=== PATIENT | female | born 1960 | race Caucasian/White ===

== ENCOUNTER 2016-11-24 17:59 | Observation (INO) ==
[2016-11-24] MEDS ORDERED: Ondansetron 4 MG/2 ML VIAL IVP PRN (21:26)
[2016-11-24] MEDS ORDERED: *HR* Morphine 2 MG/ML SYRINGE IVP PRN (21:26)
[2016-11-24] MEDS ORDERED: Acetaminophen 325 MG TABLET PO PRN (21:26)
[2016-11-24] MEDS ORDERED: Naloxone 0.4 MG/ML INJ IVP PRN (21:26)
--- NOTE | 2016-11-24 21:26 | Internal Med History&Physical ---
Date of Encounter: 11/24/16 Time of Encounter: 21:00 Assessment and Plan (1) Chest pain Current visit: Yes Status: Acute 1 patient's experiencing chest pain does have a history of CT in past with stent placement he is a smoker as well as obese history of hypertension diabetes as well as a family history of heart disease with mother dying from CT 48. 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 5 cardiac diet encouraged patient to stop smoking Qualifiers: Chest pain type: unspecified Qualified Code(s): R07.9 - Chest pain, unspecified (2) Hypertension Current visit: Yes Status: Acute 1 patient's blood pressure has been elevated we will administer oral medications as well as anxiety medicine goal is to maintain systolic 140 Qualifiers: Hypertension type: essential hypertension Qualified Code(s): I10 - Essential (primary) hypertension (3) Diabetes mellitus Current visit: Yes Status: Acute 1 patient is on metformin at home will hold for now place on Accu-Cheks before meals and at bedtime with sliding scale insulin for coverage goal is to maintain postprandial less than 180 Qualifiers: Diabetes mellitus type: type 2 Diabetes mellitus complication status: with neurologic complications Diabetes mellitus complication detail: with unspecified neuropathy Diabetes mellitus [facility] insulin use: with [facility] use Qualified Code(s): E11.40 - Type 2 diabetes mellitus with diabetic neuropathy, unspecified; Z79.4 - manager terminal (current) use of insulin (4) COPD (chronic obstructive pulmonary disease) Current visit: Yes Status: Acute 1 patient has history of COPD she does use oxygen at night. We will continue with oxygen maintain sats greater than 92% 2 continue with home bronchodilators 3 encouraged patient to stop smoking Qualifiers: COPD type: unspecified COPD Qualified Code(s): J44.9 - Chronic obstructive pulmonary disease, unspecified (5) DYLAN on CPAP Current visit: Yes Status: Acute 1 we will continue with CPAP at night (6) Tobacco abuse Current visit: Yes Status: Acute 1 patient presently smokes 2 packs a day encourage patient to stop smoking offer her nicotine patch which she declined at this time (7) DVT prophylaxis Current visit: Yes Status: Acute 1 [facility] Internal Medicine - H&P: HPI Chief complaint: CP Admitted From: Hospital to Hospital Transfer Plans for Post Hospital Care: Home History of present illness: Ms. Mckee is a 56 year old female with past medical history hypertension diabetes type [address] with stent placement x2 COPD,DYLAN hyperlipidemia. Present to the patient she did not schedule podiatry appointment this a.m. which began to experience right arm pain which she described as achiness. Her blood pressure was elevated 175/109. She was advised to go to the hospital however she went home and called her PCP again advised her to go to the hospital for evaluation. Patient then went to go to something eat at local restaurant after arriving to the restaurant she began to experience midsternal chest pain /10 she described as dull achiness, which radiated to her right arm she did become nauseated however she denies any diaphoresis or shortness of breath palpitations or vomiting. She went to the [facility] ER for evaluation. According to ER notes the patient's first cardiac troponin was negative EKG with no ST-T wave abnormality chest x-ray was negative. Lab work was unremarkable Blood pressure was elevated on presentation 215/96 the patient was given some Dilaudid IV and relieved her pain and blood pressure came down patient requested to be transferred to [facility] for further workup and evaluation. Presently the patient denies any chest pain or shortness of breath, however she does complain of a dull headache. She appears anxious and does express that she has been under a lot of stress due to her son is addicted to heroin concerned about his well-being. At present time her blood pressure is elevated she states she has not had any medications this evening and is anxious. I reviewed his case with Dr. Caldwell who agrees with plan Internal Medicine - H&P: Meds Albuterol Sulfate [Proair Hfa] 2 puff IH Q4H PRN 11/24/16 [History] Alprazolam [Xanax] 2 mg PO PRN 11/24/16 [History] Aspirin 325 mg PO DAILY 11/24/16 [History] Atorvastatin [Lipitor] 80 mg PO HS 11/24/16 [History] Clopidogrel [Plavix] 75 mg PO DAILY 11/24/16 [History] FLUoxetine HCl [PROzac] 20 mg PO DAILY 11/24/16 [History] Furosemide [Lasix] 40 mg PO DAILY 11/24/16 [History] Hydroxyzine HCl 12.5 - 50 mg PO Q6H PRN 11/24/16 [History] Insulin DETEMIR [Levemir] 0 unit SQ HS 11/24/16 [History] Lisinopril [Zestril] 40 mg PO DAILY 11/24/16 [History] Loratadine [Claritin] 10 mg PO DAILY 11/24/16 [History] Metformin HCl [Glucophage] 1,000 mg PO BID 11/24/16 [History] Metoprolol [Lopressor] 25 mg PO BID 11/24/16 [History] Nitroglycerin [Nitrostat] 0.4 mg SL Q5M PRN 11/24/16 [History] Omeprazole [PriLOSEC] 40 mg PO DAILY 11/24/16 [History] Pioglitazone [Actos] 30 mg PO DAILY 11/24/16 [History] Allergies Amoxicillin Adverse Reaction (Mild, Verified 11/24/16 21:22) Rash All Systems PM: A 10-system review of systems was performed and is negative for pertinent findings except as documented above in the HPI. - Constitutional Constitutional: no chills, no fever(s), no night sweats - Cardiovascular Cardiovascular ROS IM: chest pain - Respiratory Respiratory: cough, dyspnea - Gastrointestinal Gastrointestinal: no abdominal pain, no diarrhea, no hematemesis, no hematochezia, no melena, no nausea, no vomiting - Genitourinary Genitourinary: no change in urinary stream, no dysuria, no flank pain, no hematuria - Integumentary Integumentary IM: no rash, no unusual bruising - Neurological Neurological ROS: no confusion, no convulsions, no focal weakness, no numbness, no tingling, no tremor(s) - Constitutional Vitals: Temp Pulse Resp BP Pulse Ox 98.1 F 92 16 196/89 94 L 11/24/16 20:00 11/24/16 20:00 11/24/16 20:00 11/24/16 20:00 11/24/16 20:00 General appearance: Present: obese - Head Head exam: Present: atraumatic, normocephalic - Respiratory Respiratory exam: Present: wheezes. Absent: accessory muscle use, rales, rhonchi - Cardiovascular Cardiovascular exam: Present: RRR, +S1, +S2. Absent: diastolic murmur, gallop, rubs, systolic murmur - GI/Abdominal GI/Abdominal exam: Present: normal bowel sounds, soft, no peritoneal signs. Absent: distended, tenderness - Extremities Exam Extremities exam: Present: warm, radial pulses palpable and symetrical. Absent : calf tenderness, cyanotic, pedal edema - Neurological Exam Neurological exam: Present: CN II-XII intact, oriented X3, no focal deficits. Absent: pronater drift, facial droop, speech deficit Internal Med - H&P Results - Labs Labs: Lab work obtained from [facility] emergency department records drawn at 16:21 CBC WBC 10.6 hemoglobin 13.5 hematocrit 40.3 platelets 300 Chem-7 sodium 142, potassium 4.0, chloride 104 CO2 29, BUN 10, creatinine 0.87 , glucose 88 Troponin 0.033, reference range <0.045 negative - EKG Data EKG shows normal: sinus rhythm, ST-T waves - Diagnostic Studies Chest x-ray Additional comments: Per radiology read the cardiomediastinal silhouette is unremarkable. There is no focal consolidation. Pleural effusion or pneumothorax no evidence for acute cardiopulmonary process
[2016-11-24] MEDS ORDERED: *HR* Dextrose 50 % in Water (Syg) 50 ML SYRINGE IVP PRN (21:35)
[2016-11-24] MEDS ORDERED: Dextrose Gel 15 GM PO PRN ×2 (21:35)
[2016-11-24] MEDS ORDERED: D5% in Water 1,000 ML IV PRN (21:35)
[2016-11-24] MEDS ORDERED: Albuterol 2.5 MG/3 ML NEBULIZER IH PRN (21:43)
[2016-11-24] MEDS: Insulin LISPRO 300 UNITS/3 ML VIAL SQ SCH (22:14)
[2016-11-24] MEDS ORDERED: Nitroglycerin 0.4 MG TAB.SUBL SL PRN (22:38)
[2016-11-24] MEDS: *HR* HYDROcodone/Acet 5/325 mg TABLET PO PRN (23:02)
[2016-11-24] MEDS: ALPRAZolam 1 MG TABLET PO PRN (23:25)
[2016-11-25 03:56] LABS: Basophils % 0.3 %; Eosinophils # 0.1 K/mcL (0.0-0.6); Eosinophils % 1.3 %; Hematocrit 37.8 % (35.3-44.9); Hemoglobin 11.7 g/dL (11.5-15.4); Immature Granulocytes % 0.3 % (0-4); Lymphocytes # 2.9 K/mcL (0.6-4.6); Lymphocytes % 33.2 %; Mean Corpuscular Hemoglobin 28.1 pg (28.0-33.3); Mean Corpuscular Volume 90.6 fL (83.0-100.0); Mean Platelet Volume 9.7 fL (9.4-12.4); Monocytes # 0.3 K/mcL (0.0-1.3); Monocytes % 3.9 %; Neutrophils # 5.3 K/mcL (1.6-8.9); Platelet Count 243 K/mcL (140-400); Red Blood Count 4.17 M/mcL (3.82-4.97); Red Cell Distribution Width 16.2 % (11.5-14.5)
[2016-11-25 04:15] LABS: BUN/Creatinine Ratio 14 (6-26); Blood Urea Nitrogen 11 mg/dL (7-20); Calcium 9.1 mg/dL (8.6-10.8); Carbon Dioxide 27 mEq/L (19-29); Chloride 103 mEq/L (98-109); Chol/HDL Ratio 4.7 (0-4.9); Cholesterol 108 mg/dL (< 200); Glucose 112 mg/dL (70-99); HDL Cholesterol 23 mg/dL (40-59); LDL Cholesterol,Calculated 61 mg/dL (0-99); Magnesium 1.3 mg/dL (1.6-2.6); Osmolality,Calculated 288 (280-300); Potassium 3.9 mEq/L (3.5-4.5); Sodium 139 mEq/L (136-145); Triglycerides 118 mg/dL (< 150); eGFR For African Americans > 60 (> 60); eGFR For Non-African Americans > 60 (> 60)
[2016-11-25] MEDS: *HR* HYDROcodone/Acet 5/325 mg TABLET PO PRN ×2 (05:06→18:01)
[2016-11-25] MEDS ORDERED: Regadenoson 0.4 MG/5 ML SYRINGE IVP ONE (06:29)
[2016-11-25] MEDS: *HR* Enoxaparin 40 MG/0.4 ML SYRINGE SQ SCH (06:54)
--- NOTE | 2016-11-25 07:56 | Event Note ---
Date of Encounter: 11/25/16 Time of Encounter: 05:45 Hospitalist Attending Note: I examined this patient and my medical decision-making was reviewed with the VAMP SEAMER/PA/Advanced Practice Nurse/Resident Physician. I agree with the documented findings, disposition and treatment plan as described except to the extent set forth below. I have personally examined and evaluated the patient and discussed details with the BOTTLE TESTER. 56 Y/F with h/o CAD / CT s/p stent placement, current smoker, h/o DM, COPD, DYLAN presents with chest pain and pain in the right upper arm. O/E Bilateral wheeze present. EKG no acute changes. Troponins negative sofar. Stress test today. She reports new onset headache, going anterior to the posterior. No signs of meningism. Will obtain CT head w/o contrast.
[2016-11-25] MEDS ORDERED: Perflutren Lipid Microsphere 1.3 ML in 0.9 % Sodium Chloride 8.7 ML IVP ONE (09:36)
[2016-11-25] MEDS: Insulin LISPRO 300 UNITS/3 ML VIAL SQ SCH ×4 (10:29→20:48)
[2016-11-25] MEDS: Furosemide 40 MG TABLET PO SCH (10:33)
[2016-11-25] MEDS: Aspirin 325 MG TABLET PO SCH (10:33)
[2016-11-25] MEDS: FLUoxetine 20 MG CAPSULE PO SCH (10:33)
[2016-11-25] MEDS: Fluticasone Propionate Nasal 50 MCG/SPRAY BOTTLE NS SCH ×2 (10:34→20:48)
[2016-11-25] MEDS: Nicotine 21 MG PATCH.TD24 TD SCH (10:34)
--- NOTE | 2016-11-25 13:12 | ECHO - Doppler Report ---
Echo with Imaging Enhancement Agent Name: Ese Mckee Date of Study: 11/25/2016 Date: 1960 Ht: 62.0 in Medical Record#: [id number] Age: 56 Wt: 228.0 lb Gender: Female BSA: 2.02 Order #: [id number] Location: [facility] Room #: [id number] Reading Physician: Paolo Archer MD, [facility] Religious Education Teacher: Alva Martines RVT Ordering Physician: Darling Beltran CNP Primary Physician: Yao Klein MD Indications: Chest pain Impressions: Normal left ventricular size and systolic function, LVEF 60-65%. Moderate left ventricular diastolic dysfunction. Normal right ventricular size and function. Mildly dilated left atrium. No significant valvular dysfunction. Mild pulmonary hypertension. Estimated RVSP = 38 mmHg. Left Ventricular Wall Motion: Rest Echo Findings All wall segments showed normal motion. Findings: Study Quality * Suboptimal echo windows. Echo contrast was used. ECG Findings * Normal sinus rhythm. Left Ventricle * Normal left ventricular size and systolic function, LVEF 60-65%. * Normal LV wall thickness. * Moderate left ventricular diastolic dysfunction. Right Ventricle * Normal right ventricular size and function. Left Atrium * Mildly dilated left atrium. Right Atrium * Normal right atrial size. Aorta * Normally sized aortic root. Pericardium * There is no pericardial effusion present. IVC * The IVC is not dilated. Aortic Valve * Aortic valve not well visualized. * No aortic stenosis. * No aortic regurgitation. Mitral Valve * Normal mitral valve structure. * No mitral stenosis. * Trace mitral regurgitation. Tricuspid Valve * Tricuspid valve not well visualized. * No tricuspid stenosis. * Trace tricuspid regurgitation. * Mild pulmonary hypertension. Estimated RVSP = 38 mmHg. Pulmonic Valve * Pulmonic valve not well visualized. * No pulmonic stenosis. * Trace pulmonic regurgitation. History Hypertension Diabetes Hypercholesteremia History of Smoking Years 44 Packs 2 Family History of CAD History of CAD/PTCA Myocardial Infarction Contrast: Definity 1.3 ml in 8.7 ml of saline 2 ml. Measurements: BP: 147/ 77 2D Normal Values RVIDd: 3.20 cm IVSd: 1.00 cm 0.6 - 1.0 cm LVIDd: 4.40 cm 3.7 - 5.6 cm LVPWd: 1.00 cm 0.6 - 1.1 cm LVIDs: 2.80 cm 1.5 - 3.6 cm AO: 2.60 cm < 4.0 cm %FS: 36.40 cm >25 % LA volume: 68 Mitral Valve Peak E:1.73 m/sec Peak A:1.07 m/sec E/A Ratio:1.6 E/E' Lat Ratio:26.5 E/E' Med Ratio:39.4 Tricuspid Valve TV Regurg Peak Grad: 33.00mmHg TV Regurg Peak Madi: 2.90m/sec Updated by Paolo Archer MD, [facility] on 11/25/2016 1:04:36 PM electronically signed on 11/25/2016 1:05:44 PM with status of Final Wall Motion Chowdhury: 1=Normal, 2=Hypokinesis, 3=Akinesis, 4=Dyskinesis, 5=Aneurysmal, 6=Hyperkinetic, X=Not Visualized (Blank)=Missing
--- NOTE | 2016-11-25 14:34 | Internal Med Progress Note ---
Date of Encounter: 11/25/16 Time of Encounter: 13:00 - Assessment and plan (1) Chest pain Current Visit: Yes Status: Acute Assessment and plan: Patient has history of CAD S/P stent. Need to rule out ACS. 2 sets of troponin negative. Patient is pain-free now. Echo result unremarkable. EKG unremarkable. Will follow up stress test result. We will continue aspirin, Plavix, beta thania, atorvastatin, and HI inhibitor. Qualifiers: Chest pain type: unspecified Qualified Code(s): R07.9 - Chest pain, unspecified (2) COPD (chronic obstructive pulmonary disease) Current Visit: Yes Status: Acute Assessment and plan: Stable, in no acute distress. Has scattered wheezing, will give her 1 DuoNeb treatment and nebulizer when necessary. Qualifiers: COPD type: unspecified COPD Qualified Code(s): J44.9 - Chronic obstructive pulmonary disease, unspecified (3) Diabetes mellitus Current Visit: Yes Status: Acute Assessment and plan: Patient was on Levemir 42 units at bedtime at home. We will give her 30 units at a time Levemir and sliding scale coverage Qualifiers: Diabetes mellitus type: type 2 Diabetes mellitus complication status: with neurologic complications Diabetes mellitus complication detail: with unspecified neuropathy Diabetes mellitus alf insulin use: with alf use Qualified Code(s): E11.40 - Type 2 diabetes mellitus with diabetic neuropathy, unspecified; Z79.4 - intermediate teacher (current) use of insulin (4) Hypertension Current Visit: Yes Status: Acute Assessment and plan: BP is poorly controlled, will adjust BP medication and follow-up with blood pressure Qualifiers: Hypertension type: essential hypertension Qualified Code(s): I10 - Essential (primary) hypertension (5) DYLAN on CPAP Current Visit: Yes Status: Acute Assessment and plan: Continue CPAP at night (6) Tobacco abuse Current Visit: Yes Status: Acute Assessment and plan: Smoking cessation education. Patient is on nicotine patch (7) DVT prophylaxis Current Visit: Yes Status: Acute Assessment and plan: Lovenox subcutaneous - Subjective Interval history: Patient is a 56-year-old female admitted for chest pain. Her past medical history is significant for hypertension, diabetes, CAD S/P stents, tobacco abuse , DYLAN on CPAP. Patient was seen and examined. She is pain-free today, no shortness of breath. Complaining of mild right arm ache, most likely muscle pain. 2 sets of troponin negative. Patient had a stress test this morning, will finish the stress test tomorrow morning. Echo done, result unremarkable. Patient complaining of headache, had a head CT which shows negative. Her BP is not well controlled, will continue manager global hypertension and closely monitoring patient. - Constitutional Vitals: Temp Pulse Resp BP Pulse Ox 97.5 F L 61 16 183/104 93 L 11/25/16 12:05 11/25/16 12:05 11/25/16 12:05 11/25/16 12:05 11/25/16 12:05 General appearance: Present: A&O X 3, no acute distress, obese, answers questions appropriately - Head Head exam: Present: atraumatic, normocephalic - Eye Eye exam: Present: PERRL, conjuntiva pink, sclera anicteric Pupils: Present: PERRL - Neck Neck exam general surgery: Present: supple, trachea midline. Absent: lymphadenopathy - Respiratory Respiratory exam: Present: CTAB, wheezes (Scattered wheezes on the right side). Absent: accessory muscle use, rales, rhonchi - Cardiovascular Cardiovascular exam: Present: RRR, +S1, +S2. Absent: diastolic murmur, gallop, rubs, systolic murmur - GI/Abdominal GI/Abdominal exam: Present: normal bowel sounds, soft, no peritoneal signs. Absent: distended, tenderness - Extremities Exam Extremities exam: Present: warm, radial pulses palpable and symetrical. Absent : calf tenderness, cyanotic, pedal edema - Neurological Exam Neurological exam: Present: CN II-XII intact, oriented X3, no focal deficits. Absent: pronater drift, facial droop, speech deficit - Skin Skin exam: Present: dry, intact Internal Medicine: Result - Labs CBC & Chem 7: 11/25/16 03:26 11/25/16 03:26 Labs: Short CBC 11/25/16 Range/Units 03:26 WBC 8.7 (4.3-11.1) K/mcL Hgb 11.7 (11.5-15.4) g/dL Hct 37.8 (35.3-44.9) % Plt Count 243 (140-400) K/mcL Neutrophils # 5.3 (1.6-8.9) K/mcL BMP 11/25/16 03:26 Sodium 139 Potassium 3.9 Chloride 103 Carbon Dioxide 27 BUN 11 Creatinine 0.77 Glucose 112 H Calcium 9.1 Cardiac Enzymes 11/24/16 11/25/16 Range/Units 22:01 03:26 Troponin I 0.01 0.03 (0-0.03) ng/mL - Impressions Impressions Head CT 11/25/16 07:55 IMPRESSION: No acute intracranial abnormality. D/ / Alissa Da Silva MD / Alissa Da Silva MD Interpreting Provider: Alissa Da Silva MD Consult Discharge Plan - Plan Referrals: Yao Klein MD [Primary Care Provider] -
[2016-11-25] MEDS ORDERED: GuaiFENesin Liq 200 MG/10 ML UDC PO PRN (14:36)
[2016-11-25] MEDS ORDERED: Ipratropium/Albuterol Neb 3 ML IH ONE (14:36)
[2016-11-25] MEDS ORDERED: NON-FORMULARY MEDICATION 1 EACH EACH (Lisinopril [Zestril] 40 MG) PO SCH (14:45)
[2016-11-25] MEDS: ALPRAZolam 1 MG TABLET PO PRN (20:43)
[2016-11-25] MEDS ORDERED: Insulin DETEMIR 100 UNIT/ML X5UNITS SQ SCH (21:00)
[2016-11-26 04:13] LABS: Basophils % 0.3 %; Eosinophils # 0.1 K/mcL (0.0-0.6); Eosinophils % 1.5 %; Hematocrit 40.4 % (35.3-44.9); Hemoglobin 12.6 g/dL (11.5-15.4); Immature Granulocytes % 0.3 % (0-4); Lymphocytes # 2.4 K/mcL (0.6-4.6); Lymphocytes % 31.8 %; Mean Corpuscular HGB Conc 31.2 g/dL (31.6-35.5); Mean Corpuscular Hemoglobin 27.8 pg (28.0-33.3); Mean Platelet Volume 9.7 fL (9.4-12.4); Monocytes # 0.4 K/mcL (0.0-1.3); Monocytes % 4.7 %; Neutrophils # 4.6 K/mcL (1.6-8.9); Platelet Count 258 K/mcL (140-400); Red Blood Count 4.54 M/mcL (3.82-4.97); Segmented Neutrophils % 61.4 %
[2016-11-26 04:34] LABS: BUN/Creatinine Ratio 22 (6-26); Blood Urea Nitrogen 16 mg/dL (7-20); Calcium 9.4 mg/dL (8.6-10.8); Carbon Dioxide 30 mEq/L (19-29); Chloride 103 mEq/L (98-109); Glucose 121 mg/dL (70-99); Osmolality,Calculated 296 (280-300); Potassium 3.7 mEq/L (3.5-4.5); Sodium 142 mEq/L (136-145); eGFR For African Americans > 60 (> 60); eGFR For Non-African Americans > 60 (> 60)
[2016-11-26] MEDS: *HR* Enoxaparin 40 MG/0.4 ML SYRINGE SQ SCH (05:59)
[2016-11-26] MEDS: Insulin LISPRO 300 UNITS/3 ML VIAL SQ SCH (08:16)
[2016-11-26] MEDS: Furosemide 40 MG TABLET PO SCH (08:18)
[2016-11-26] MEDS: FLUoxetine 20 MG CAPSULE PO SCH (08:18)
[2016-11-26] MEDS: Fluticasone Propionate Nasal 50 MCG/SPRAY BOTTLE NS SCH (08:19)
[2016-11-26] MEDS: Nicotine 21 MG PATCH.TD24 TD SCH (08:19)
[2016-11-26] MEDS: Aspirin 325 MG TABLET PO SCH (08:19)
[2016-11-26] MEDS ORDERED: amLODIPine 5 MG TABLET PO SCH (09:00)
[2016-11-26] MEDS ORDERED: Lisinopril 20 MG TABLET PO SCH (09:00)
--- NOTE | 2016-11-26 10:01 | Nuclear Medicine Stress Report ---
Regadenoson Nuclear 2 day Name: Ese Mckee Date of Study: 11/25/2016 Date: 1960 Ht: 61.0 in Medical Record#: [id number] Age: 56 Wt: 228.0 lb Gender: Female Order #: [id number] Location: [facility] Room: [facility] Supervising Provider: Gary Grijalva CNP Reading Physician: Dequan Ramirez DO, PEDRO HEADLEY FASNC Ordering Physician: Brooke Bello CNP Primary Care Physician: Yao Klein MD Stress Technologist: Geovanni Fernandez CRT Centrifugal Wax Molder: Tommy Watkins Indications: Chest Pain Impression: Pharmacologic stress ECG is negative for ischemia at level of heart rate achieved. Gated EF = 68%. Small sized, mild intensity, partially reversible anterior perfusion defect suspicious for shifting breast attenuation artifact. SDS 1. Perfusion imaging was negative for definitive ischemia or prior infarct. History: Hypertension Diabetes Hypercholesteremia History of Smoking Prior PCI Stress Test Summary: Stress Test Type: Pharmacologic Regadenoson 0.4mg/5ml given IV Baseline Information: Initial Heart Rate: 67 Blood Pressure: 138/72 Stress Information: Test Terminated Due to (primary): As per protocol Maximum Blood Pressure: 170/80 Maximum Heart Rate: 120 Percent Maximum Heart Rate Achieved: 73 Double Product: 84994 METS Reached: 1 Symptoms: Vomiting, No chest symptoms Nuclear Summary: SPECT myocardial perfusion imaging using Tc99m Sestamibi given intravenously was performed at rest and following cardiac stress testing. The resting images were obtained following initial dose of 34.2 mCi. Following stress an additional dose of 35.1 mCi was given at peak exercise or 30 seconds post regadenoson infusion. Medication Given: Time Medication Dose Units Route Findings: Stress Note * Resting ECG demonstrated normal sinus rhythm. * No baseline arrhythmias were noted. * Pharmacologic stress ECG is negative for ischemia at level of heart rate achieved. * No arrhythmias were noted during stress. * Patient had no chest pain during stress. * Normal hemodynamic responses to pharmacologic stress. Study Quality * Study quality is average. Gated EF % * Gated EF = 68%. Left Ventricle * The left ventricle is dilated. LVEDV = 98 mL. * Normal wall motion. Anterior Perfusion Rest * Mild basal anterior reduction in perfusion. Anterior Perfusion Stress * The anterior segments show a mild reduction in perfusion. TID * No evidence of transient ischemic dilatation. TID ratio = 1.26. Lung Uptake * There is no evidence of increase lung uptake. Updated by Dequan Ramirez DO, KYAODE, PEDRO, ALY on 11/26/2016 9:53:53 AM electronically signed on 11/26/2016 9:55:57 AM with status of Final
--- NOTE | 2016-11-26 10:20 | Discharge Summary ---
Date of Encounter: 11/26/16 Time of Encounter: 09:00 - Discharge Diagnosis (1) Chest pain Priority: Primary Status: Acute Qualifiers: Chest pain type: unspecified Qualified Code(s): R07.9 - Chest pain, unspecified (2) COPD (chronic obstructive pulmonary disease) Priority: Secondary Status: Acute Qualifiers: COPD type: unspecified COPD Qualified Code(s): J44.9 - Chronic obstructive pulmonary disease, unspecified (3) Diabetes mellitus Priority: Secondary Status: Acute Qualifiers: Diabetes mellitus type: type 2 Diabetes mellitus complication status: with neurologic complications Diabetes mellitus complication detail: with unspecified neuropathy Diabetes mellitus acid strength inspector insulin use: with acid strength inspector use Qualified Code(s): E11.40 - Type 2 diabetes mellitus with diabetic neuropathy, unspecified; Z79.4 - physical education aide (current) use of insulin (4) Hypertension Priority: Secondary Status: Acute Qualifiers: Hypertension type: essential hypertension Qualified Code(s): I10 - Essential (primary) hypertension (5) DYLAN on CPAP Priority: Secondary Status: Acute (6) Tobacco abuse Priority: Secondary Status: Acute (7) DVT prophylaxis Priority: Secondary Status: Acute - Discharge Medications Prescriptions: GuaiFENesin Liq [Robitussin Liq] 200 mg PO Q6HR PRN 7 Days PRN Reason: Cough Amlodipine [Norvasc] 5 mg PO DAILY #30 tablet Nicotine Patch [Nicoderm] 21 mg TD DAILY #14 patch.td24 Home Medications: Albuterol Sulfate [Proair Hfa] 2 puff IH Q4H PRN 11/24/16 [History] Alprazolam [Xanax] 2 mg PO DAILY PRN 11/24/16 [History] Aspirin 325 mg PO DAILY 11/24/16 [History] Atorvastatin [Lipitor] 80 mg PO HS 11/24/16 [History] Clopidogrel [Plavix] 75 mg PO DAILY 11/24/16 [History] FLUoxetine HCl [Prozac] 20 mg PO QAM 11/24/16 [History] Furosemide [Lasix] 40 mg PO DAILY 11/24/16 [History] Hydroxyzine HCl 12.5 - 50 mg PO Q6H PRN 11/24/16 [History] Insulin DETEMIR [Levemir] 42 unit SQ HS 11/24/16 [History] Lisinopril [Zestril] 40 mg PO DAILY 11/24/16 [History] Loratadine [Claritin] 10 mg PO DAILY 11/24/16 [History] Metformin HCl [Glucophage] 1,000 mg PO BID 11/24/16 [History] Metoprolol [Lopressor] 25 mg PO BID 11/24/16 [History] Nitroglycerin [Nitrostat] 0.4 mg SL Q5M PRN 11/24/16 [History] Omeprazole [PriLOSEC] 40 mg PO DAILY 11/24/16 [History] Pioglitazone [Actos] 30 mg PO DAILY 11/24/16 [History] Amlodipine [Norvasc] 5 mg PO DAILY #30 tablet 11/26/16 [Rx] GuaiFENesin Liq [Robitussin Liq] 200 mg PO Q6HR PRN 7 Days 11/26/16 [Rx] Nicotine Patch [Nicoderm] 21 mg TD DAILY #14 patch.td24 11/26/16 [Rx] Allergies/Adverse Reactions: Allergies Amoxicillin Adverse Reaction (Mild, Verified 11/24/16 21:22) Rash Procedures/tests Complete & Pending: Procedures Performed prior 72 hours Category Date Time Status CT head/brain wo con [CT] Stat Cat Scan 11/25/16 07:55 Completed NM keily perf SPECT multi [NM] Routine Exams 11/25/16 08:00 Taken ECG 12 lead ECG [ECG] AM 0600 Y 11/25/16 06:00 Ordered EV echocardiogram w enhance Routine Y 11/25/16 21:45 Completed SP pharm nuclear stress Routine Y 11/25/16 07:30 Completed Date of admission: 11/24/16 19:37 Primary care physician: Yao Klein MD Discharging clinician: Jose Alberto Mares Anticipated date of discharge: 11/26/16 - Patient Status Disposition: Home, Self-Care Condition: Good Functional capacity at discharge: independent ambulation Overall status at discharge: patient is back to baseline - Discharge Instructions Follow Up With: Yao Klein MD [Primary Care Provider] - 11/30/16 9:00 am - Diet and Activity Activity: increase activity as tolerated Diet: diabetic diet Interval History: Ms. Mckee is a 56 year old female with past medical history hypertension diabetes type 2 with neuropathy MS with stent placement x2 COPD,DYLAN hyperlipidemia. Present to the patient she did not schedule podiatry appointment this a.m. which began to experience right arm pain which she described as achiness. Her blood pressure was elevated 175/109. She was advised to go to the hospital however she went home and called her PCP again advised her to go to the hospital for evaluation. Patient then went to go to something eat at local restaurant after arriving to the restaurant she began to experience midsternal chest pain /10 she described as dull achiness, which radiated to her right arm she did become nauseated however she denies any diaphoresis or shortness of breath palpitations or vomiting. She went to the [facility] ER for evaluation. According to ER notes the patient's first cardiac troponin was negative EKG with no ST-T wave abnormality chest x-ray was negative. Lab work was unremarkable Blood pressure was elevated on presentation 215/96 the patient was given some Dilaudid IV and relieved her pain and blood pressure came down patient requested to be transferred to [facility] for further workup and evaluation. Presently the patient denies any chest pain or shortness of breath, however she does complain of a dull headache. She appears anxious and does express that she has been under a lot of stress due to her son is addicted to heroin concerned about his well-being. At present time her blood pressure is elevated she states she has not had any medications this evening and is anxious. Hospital course: Ms. Mckee is a 56 year old female admitted as a chest pain to rule out ACS. Patient was placed on cardiac monitoring. She has history of CAD and was on 8 aspirin, Plavix, beta thania, statin already. She has no further chest pain after hospitalization. 3 sets of troponin negative. EKG unremarkable. CXR from other hospital on 11/23/16 was negative. Nuclear stress test was done, results negative. Patient will discharge home today and follow up with her PCP as outpatient. I saw and examined the patient today. She is awake, alert, oriented 3. Mild cough. No chest pain, no shortness of breath, no nausea, no vomiting. No fever , vital signs stable except blood pressure is high at 150s. Will add amlodipine 5 mg to her home medication list. Patient is stable to discharge home. Smoking cessation education was done. Time spent discussing smoking cessation with patient: 3 to 10 minutes - Time Spent with Patient Total time spent providing and/or coordinating discharge services: 40 minutes Greater than 30 minutes - Constitutional Vitals: Temp Pulse Resp BP Pulse Ox 97.4 F L 84 20 156/50 98 11/26/16 08:05 11/26/16 08:05 11/26/16 08:05 11/26/16 08:05 11/26/16 08:24 General appearance: Present: A&O X 3, no acute distress, obese, answers questions appropriately - Head Head exam: Present: atraumatic, normocephalic - Eye Eye exam: Present: PERRL, conjuntiva pink, sclera anicteric Pupils: Present: PERRL - Neck Neck exam general surgery: Present: supple, trachea midline. Absent: lymphadenopathy - Respiratory Respiratory exam: Present: CTAB, wheezes (Few wheezes on right side). Absent: accessory muscle use, rales, rhonchi - Cardiovascular Cardiovascular exam: Present: RRR, +S1, +S2. Absent: diastolic murmur, gallop, rubs, systolic murmur - GI/Abdominal GI/Abdominal exam: Present: normal bowel sounds, soft, no peritoneal signs. Absent: distended, tenderness - Extremities Exam Extremities exam: Present: warm, radial pulses palpable and symetrical. Absent : calf tenderness, cyanotic, pedal edema - Neurological Exam Neurological exam: Present: CN II-XII intact, oriented X3, no focal deficits. Absent: pronater drift, facial droop, speech deficit - Skin Skin exam: Present: dry, intact
[2016-11-26 11:01] VITALS: BP 143/84
== END 2016-11-26 11:15 | disposition home or self-care (01) ==
LOC: 3BNU → SUATTDRO 19:37
PROVIDERS: ADMIT Family Medicine; ATTEND Internal Medicine

== ENCOUNTER 2021-03-02 20:51 | Inpatient (IN) ==
[2021-03-02] MEDS ORDERED: Isovue-370 500 ML BOTTLE IVP ONE (21:07)
[2021-03-02 22:15] LABS: Hematocrit 39.6 % (35.3-44.9); Mean Corpuscular HGB Conc 32.8 g/dL (31.6-35.5); Mean Corpuscular Hemoglobin 30.1 pg (28.0-33.3); Mean Corpuscular Volume 91.7 fL (83.0-100.0); Mean Platelet Volume 9.5 fL (9.4-12.4); Platelet Count 299 K/mcL (140-400); Red Blood Count 4.32 M/mcL (3.82-4.97); Red Cell Distribution Width 14.1 % (11.5-14.5); White Blood Count 11.5 K/mcL (4.3-11.1)
[2021-03-02 22:22] LABS: Prothrombin Time 11.7 Seconds (9.4-12.1)
[2021-03-02 22:25] LABS: Activated Partial Thrombo Time 24.1 Seconds (26.0-36.0)
[2021-03-02 22:49] LABS: BUN/Creatinine Ratio 20 (6-26); Blood Urea Nitrogen 15 mg/dL (8-23); Calcium 8.9 mg/dL (8.6-10.3); Carbon Dioxide 28 mEq/L (23-29); Chloride 101 mEq/L (98-107); Ethanol < 10 mg/dL (Less than 10); Glucose 134 mg/dL (70-105); Osmolality,Calculated 289 (280-300); Potassium 3.5 mEq/L (3.5-5.1); Sodium 138 mEq/L (136-145); Troponin I < 0.03 ng/mL (< 0.04); eGFR For African Americans > 60 (> 60); eGFR For Non-African Americans > 60 (> 60)
[2021-03-02 22:51] LABS: Bacteria,Urine Few per hpf (None-Few); Bilirubin,Urine Negative (Negative); Blood,Urine Negative (Negative); Clarity,Urine Turbid (Clear); Color,Urine Light-Yellow (Yellow); Glucose,Urine (UA) Normal (Normal); Ketones,Urine Negative (Negative); Leukocyte Esterase,Urine Large (Negative); Nitrite,Urine Negative (Negative); PH,Urine 6.5 pH Units (5.0-8.0); Protein,Urine Negative (Neg-Trace); Specific Gravity,Urine 1.013 (1.010-1.025); Squamous Epithelial Cell,Urine Few per hpf (None-Few); Urobilinogen,Urine Normal (Normal); WBC,Urine 50-100 per hpf (0-3)
[2021-03-02 23:02] LABS: Amphetamine Screen,Urine Negative ng/mL (Cutoff=1000); Barbiturate Screen,Urine Negative ng/mL (Cutoff=200); Benzodiazepines Screen,Urine Negative ng/mL (Cutoff=200); Cannabinoid Screen,Urine Positive ng/mL (Cutoff = 50); Cocaine Screen,Urine Negative ng/mL (Cutoff= 300); Opiate Screen,Urine Negative ng/mL (Cutoff=300); Phencyclidine Screen,Urine Negative ng/mL (Cutoff=25)
[2021-03-02] MEDS ORDERED: cefTRIAXone 1,000 MG in 0.9 % Sodium Chloride Mini Bag 100 ML IVPB ONE (23:38)
[2021-03-02] MEDS ORDERED: Aspirin 325 MG TABLET PO ONE (23:41)
[2021-03-03] MEDS ORDERED: Dextrose Gel 15 GM/37.5 ML TUBE PO PRN ×2 (01:55)
[2021-03-03] MEDS ORDERED: D5% in Water 1,000 ML IVC PRN (01:55)
[2021-03-03] MEDS ORDERED: *HR* Dextrose 50 % in Water (Vial) 50 ML VIAL IVP PRN (01:55)
[2021-03-03] MEDS ORDERED: *HR* Labetalol 20 MG/4 ML SYRINGE IVP PRN (01:59)
[2021-03-03] MEDS ORDERED: Melatonin 3 MG TABLET PO SCH (02:15)
[2021-03-03] MEDS: Melatonin 3 MG TABLET PO SCH ×2 (02:43→20:17)
[2021-03-03] MEDS: *HR* Heparin 5,000 UNIT/ML VIAL SQ SCH ×2 (05:15→17:23)
[2021-03-03] MEDS ORDERED: Ondansetron 4 MG/2 ML VIAL IVP PRN (05:16)
[2021-03-03] MEDS ORDERED: Naloxone 0.4 MG/ML INJ IVP PRN (05:16)
[2021-03-03 06:37] LABS: Chol/HDL Ratio 5.5 (0-4.9)
[2021-03-03] MEDS: lisinopriL 20 MG TABLET PO SCH (08:29)
[2021-03-03] MEDS: Loratadine 10 MG TABLET PO SCH (08:29)
[2021-03-03] MEDS: Insulin LISPRO 300 UNITS/3 ML VIAL SUBQ SCH ×4 (08:29→20:17)
[2021-03-03] MEDS: Aspirin 81 MG TAB.CHEW PO SCH (08:29)
[2021-03-03] MEDS ORDERED: Perflutren Lipid Microsphere 1.3 ML in 0.9 % Sodium Chloride 8.7 ML IVP PRN (08:41)
[2021-03-03] MEDS ORDERED: amLODIPine 5 MG TABLET PO SCH (09:00)
[2021-03-03] MEDS ORDERED: Furosemide 40 MG TABLET PO SCH (09:00)
[2021-03-03] MEDS ORDERED: FLUoxetine 20 MG CAPSULE PO SCH (09:00)
[2021-03-03 10:21] LABS: Estimated Average Glucose 183 mg/dl
[2021-03-03] MEDS: Fluticasone Propionate Nasal 50 MCG/SPRAY BOTTLE NS SCH (12:50)
[2021-03-03] MEDS: Gabapentin 300 MG CAPSULE PO SCH ×3 (12:59→20:16)
[2021-03-03] MEDS ORDERED: FLUoxetine 20 MG CAPSULE PO ONE (13:00)
[2021-03-03] MEDS: cefTRIAXone 1,000 MG in Water for inj. (sterile) 10 ML IVP SCH (20:15)
[2021-03-03] MEDS: Insulin DETEMIR 100 UNIT/ML X5UNITS SUBQ SCH (20:18)
[2021-03-03] MEDS ORDERED: Insulin DETEMIR 100 UNIT/ML X5UNITS SUBQ SCH (21:00)
[2021-03-04] MEDS ORDERED: Acetaminophen IV 1,000 MG/100 ML BAG IVPB ONE (04:23)
[2021-03-04] MEDS: *HR* Heparin 5,000 UNIT/ML VIAL SQ SCH ×2 (05:21→16:42)
[2021-03-04 06:37] LABS: Basophils % 0.5 %; Eosinophils # 0.3 K/mcL (0.0-0.6); Eosinophils % 3.3 %; Hemoglobin 13.7 g/dL (11.5-15.4); Immature Granulocytes % 0.9 % (0-4); Lymphocytes # 1.9 K/mcL (0.6-4.6); Lymphocytes % 22.4 %; Mean Corpuscular HGB Conc 33.4 g/dL (31.6-35.5); Mean Corpuscular Hemoglobin 30.6 pg (28.0-33.3); Mean Corpuscular Volume 91.5 fL (83.0-100.0); Mean Platelet Volume 9.7 fL (9.4-12.4); Monocytes # 0.4 K/mcL (0.0-1.3); Monocytes % 4.1 %; Neutrophils # 5.9 K/mcL (1.6-8.9); Platelet Count 298 K/mcL (140-400); Red Blood Count 4.48 M/mcL (3.82-4.97); Red Cell Distribution Width 14.4 % (11.5-14.5); Segmented Neutrophils % 68.8 %; White Blood Count 8.5 K/mcL (4.3-11.1)
[2021-03-04] MEDS: FLUoxetine 20 MG CAPSULE PO SCH (08:35)
[2021-03-04] MEDS: Gabapentin 300 MG CAPSULE PO SCH ×3 (08:35→20:37)
[2021-03-04] MEDS: Fluticasone Propionate Nasal 50 MCG/SPRAY BOTTLE NS SCH (08:36)
[2021-03-04] MEDS: Loratadine 10 MG TABLET PO SCH (08:36)
[2021-03-04] MEDS: Aspirin 81 MG TAB.CHEW PO SCH (08:36)
[2021-03-04] MEDS: Cyanocobalamin (B-12) 1,000 MCG TABLET PO SCH (08:36)
[2021-03-04] MEDS: Insulin DETEMIR 100 UNIT/ML X5UNITS SUBQ SCH ×2 (08:38→21:00)
[2021-03-04] MEDS: Insulin LISPRO 300 UNITS/3 ML VIAL SUBQ SCH ×4 (08:39→20:40)
[2021-03-04] MEDS ORDERED: QUEtiapine Fumarate 25 MG TABLET PO PRN (10:56)
[2021-03-04] MEDS: cefTRIAXone 1,000 MG in Water for inj. (sterile) 10 ML IVP SCH (20:38)
[2021-03-04] MEDS: Melatonin 3 MG TABLET PO SCH (22:32)
[2021-03-05] MEDS ORDERED: Acetaminophen IV 1,000 MG/100 ML BAG IVPB ONE ×2 (00:04→09:40)
[2021-03-05] MEDS: *HR* Heparin 5,000 UNIT/ML VIAL SQ SCH ×2 (05:30→16:45)
[2021-03-05] MEDS: Aspirin 81 MG TAB.CHEW PO SCH (08:01)
[2021-03-05] MEDS: Gabapentin 300 MG CAPSULE PO SCH ×3 (08:01→20:02)
[2021-03-05] MEDS: FLUoxetine 20 MG CAPSULE PO SCH (08:01)
[2021-03-05] MEDS: Cyanocobalamin (B-12) 1,000 MCG TABLET PO SCH (08:02)
[2021-03-05] MEDS: Loratadine 10 MG TABLET PO SCH (08:02)
[2021-03-05] MEDS: Insulin DETEMIR 100 UNIT/ML X5UNITS SUBQ SCH ×2 (08:04→20:06)
[2021-03-05] MEDS: Fluticasone Propionate Nasal 50 MCG/SPRAY BOTTLE NS SCH (08:04)
[2021-03-05] MEDS: Insulin LISPRO 300 UNITS/3 ML VIAL SUBQ SCH ×4 (08:05→20:06)
[2021-03-05] MEDS: lisinopriL 20 MG TABLET PO SCH (11:36)
[2021-03-05] MEDS ORDERED: *HR* OxyCODONE Immed Rel 5 MG TABLET PO ONE (13:59)
[2021-03-05] MEDS: Melatonin 3 MG TABLET PO SCH (20:02)
[2021-03-06] MEDS ORDERED: Acetaminophen IV 1,000 MG/100 ML BAG IVPB ONE ×2 (03:55→09:25)
[2021-03-06] MEDS: *HR* Heparin 5,000 UNIT/ML VIAL SQ SCH (04:22)
[2021-03-06] MEDS: lisinopriL 20 MG TABLET PO SCH (07:50)
[2021-03-06] MEDS: Loratadine 10 MG TABLET PO SCH (07:50)
[2021-03-06] MEDS: Gabapentin 300 MG CAPSULE PO SCH (07:50)
[2021-03-06] MEDS: Cyanocobalamin (B-12) 1,000 MCG TABLET PO SCH (07:50)
[2021-03-06] MEDS: Aspirin 81 MG TAB.CHEW PO SCH (07:50)
[2021-03-06] MEDS: FLUoxetine 20 MG CAPSULE PO SCH (07:50)
[2021-03-06] MEDS: Fluticasone Propionate Nasal 50 MCG/SPRAY BOTTLE NS SCH (07:52)
[2021-03-06] MEDS: Insulin LISPRO 300 UNITS/3 ML VIAL SUBQ SCH ×2 (07:52→12:21)
[2021-03-06] MEDS: Insulin DETEMIR 100 UNIT/ML X5UNITS SUBQ SCH (07:55)
[2021-03-06 11:37] VITALS: BP 157/79
[2021-03-06 11:47] LABS: Adenovirus Not Detected (Not Detect); Bordetella Pertussis Not Detected (Not Detect); Chlamydophila pneumoniae Not Detected (Not Detect); Coronavirus 229E Not Detected (Not Detect); Coronavirus HKU1 Not Detected (Not Detect); Coronavirus NL63 Not Detected (Not Detect); Coronavirus OC43 Not Detected (Not Detect); Human Metapneumovirus Not Detected (Not Detect); Human Rhinovirus/Enterovirus Not Detected (Not Detect); Influenza A Subtype 2009 H1 Not Detected (Not Detect); Influenza B Not Detected (Not Detect); Mycoplasma pneumoniae Not Detected (Not Detect); Parainfluenza Virus 1 Not Detected (Not Detect); Parainfluenza Virus 2 Not Detected (Not Detect); Parainfluenza Virus 3 Not Detected (Not Detect); Parainfluenza Virus 4 Not Detected (Not Detect); Respiratory Syncytial Virus Not Detected (Not Detect); SARS-CoV-2 Not Detected (Not Detect)
== END 2021-03-06 15:27 | disposition other institution (70) | DRG 65 ==
LOC: EMEROOARM 20:51 → 3BNU 20:51 → SUATTDRO 03-03 00:10 → 3BNU 03-03 00:50
PROVIDERS: ADMIT Internal Medicine; ATTEND Internal Medicine